=== PATIENT | male | born 1985 | race Two or more races ===

== ENCOUNTER 2017-09-21 16:16 | Emergency (ER) | payer MEDICAID ==
[~2017-09-21] VITALS: Ht 180.3 cm; Wt 83.9 kg
[2017-09-21] MEDS ORDERED: ONDANSETRON 4 MG/2 ML VIAL IM ONE (16:45)
[2017-09-21] MEDS ORDERED: HYDROMORPHONE 1 MG/1 ML DISP.SYRIN IM ONE (16:45)
[2017-09-21] MEDS ORDERED: HYDROMORPHONE 4 MG/1 ML DISP.SYRIN ONE (16:49)
[2017-09-21] MEDS ORDERED: ONDANSETRON 4 MG/2 ML VIAL ONE (16:50)
--- NOTE | 2017-09-21 16:58 | NUR ---
PATIENT WAS SEEN BY DR GALVEZ. MEDICATION GIVEN ORDERED. AT BEDSIDE. TO [place]. DILAUDID PRECAUTIONS AND WARNINGS EXPLAINED TO BOTH OF THEM
--- NOTE | 2017-09-21 17:38 | NUR ---
PATIENT STATE PAIN HAS DIMINISHED. DC, RX (INCLUDING NORCO PRECAUTIONS) AND FOLLOW UP INSTRUCTIONS GIVEN AND EXPLAINED TO PATIENT WHO STATES HE UNDERSTANDS ALL INSTRUCTIONS.
[2017-09-21 17:39] VITALS: BP 110/69
== END 2017-09-21 17:46 | disposition home or self-care (01) ==
LOC: ER 16:17
DX: M54.9 Dorsalgia, unspecified (principal)
CPT/HCPCS: 72100; A4663; J1170; J2405